=== PATIENT | female | born 1955 | race Caucasian/White ===

== ENCOUNTER → 2016-08-12 | Outpatient (CLI) | payer BC | LOC: RAD 07:33 | PROVIDERS: ATTEND Family Medicine | DX: N64.52 Nipple discharge (principal) ==

== ENCOUNTER → 2021-05-07 | Outpatient (CLI) | payer BC, MEDICARE ==
--- NOTE | 2021-05-07 11:28 | Diagnostic Imaging Report ---
Indication: Routine screening. Comparison is made with prior mammogram from 07/19/2014 and 10/18/2012. 2-D and 3-D bilateral screening mammography was performed CAD. Both breasts are heterogeneously dense, limiting the sensitivity of mammography. There are scattered benign calcifications throughout both breasts. No dominant mass or malignant-appearing microcalcifications are seen. Axillae are unremarkable. IMPRESSION: BI-RADS Category 2 No mammographic features suspicious for malignancy are identified. ACR BI-RADS Category 2: Benign findings. Result letter will be mailed to the patient. Note: At least 10% of breast cancer is not imaged by mammography. Dictated by: Dictated on workstation # [id number]
== END ==
LOC: RAD 10:45
PROVIDERS: ATTEND Nurse Practitioner Family
DX: Z12.31 Encounter for screening mammogram for malignant neoplasm of breast (principal)
CPT/HCPCS: 77063; 77067